=== PATIENT | female | born 1990 | race Caucasian/White ===

== ENCOUNTER → 2019-06-07 | Outpatient (REF) | payer OTHER, MEDICAID ==
[~2019-06-07] MED LIST: IBUP80TA PO; PERCOCET PO; RANI-356 PO; TUMS500C PO; VITAPRTA PO; ZANT150T40 PO
[2019-06-07 19:26] LABS: BASO % 0.4 % (0.0-1.0); EOS # 0.1 10^3/uL (0.0-0.5); EOS % 2.3 % (0.0-3.0); HEMATOCRIT 39.6 % (36.0-47.0); HEMOGLOBIN 13.4 g/dl (12.0-15.5); LYMPH % 20.7 % (24.0-44.0); MEAN CORPUSCULAR HEMOGLOBIN 29.5 pg (27.0-33.0); MEAN CORPUSCULAR HGB CONC 33.8 g/dl (32.0-36.5); MONO # 0.3 10^3/uL (0.0-0.8); MONO % 6.2 % (0.0-5.0); NEUTROPHILS # 3.4 10^3/uL (1.5-8.5); PLATELET COUNT, AUTOMATED 191 10^3/uL (150-450); RED BLOOD COUNT 4.55 10^6/uL (4.00-5.40); WHITE BLOOD COUNT 4.8 10^3/uL (4.0-10.0)
[2019-06-07 19:33] LABS: ALBUMIN 3.8 GM/DL (3.2-5.2); ALT/SGPT 15 U/L (12-78); BILIRUBIN,TOTAL 0.5 MG/DL (0.2-1.0); BLOOD UREA NITROGEN 10 MG/DL (7-18); CALCIUM LEVEL 9.1 MG/DL (8.5-10.1); CARBON DIOXIDE LEVEL 28 MEQ/L (21-32); CHLORIDE LEVEL 105 MEQ/L (98-107); CHOLESTEROL LEVEL 171 MG/DL (<200); CHOLESTEROL RISK RATIO 2.758 (<5); CREATININE FOR GFR 0.62 MG/DL (0.55-1.30); GLOMERULAR FILTRATION RATE > 60.0 (>60); GLUCOSE, FASTING 67 MG/DL (70-100); HDL CHOLESTEROL 62 MG/DL (>40); LDL CHOLESTEROL 97 MG/DL (<100); NON-HDL-C 109 MG/DL; POTASSIUM SERUM 3.9 MEQ/L (3.5-5.1); SODIUM LEVEL 140 MEQ/L (136-145); TOTAL PROTEIN 7.1 GM/DL (6.4-8.2); TRIGLYCERIDES LEVEL 59 MG/DL (<150)
[2019-06-07 19:34] LABS: TOTAL 25(OH) VITAMIN D 14.9 NG/ML (30.0-100.0)
[2019-06-07 19:45] LABS: HEMOGLOBIN A1c 4.4 %
== END ==
LOC: M LAB REF 16:48
PROVIDERS: ATTEND Nurse Practitioner Family
DX: Z00.01 Encounter for general adult medical examination with abnormal findings (principal)

== ENCOUNTER → 2020-01-31 | Outpatient (REF) | payer OTHER ==
[~2020-01-31] MED LIST changes: -RANI-356 PO; +RANI-397 PO
[2020-01-31 14:20] LABS: HEMATOCRIT 34.3 % (36.0-47.0); HEMOGLOBIN 11.8 g/dl (12.0-15.5); MEAN CORPUSCULAR HEMOGLOBIN 29.9 pg (27.0-33.0); MEAN CORPUSCULAR HGB CONC 34.4 g/dl (32.0-36.5); MEAN CORPUSCULAR VOLUME 86.8 fl (80.0-96.0); PLATELET COUNT, AUTOMATED 196 10^3/uL (150-450); RED BLOOD COUNT 3.95 10^6/uL (4.00-5.40); WHITE BLOOD COUNT 5.3 10^3/uL (4.0-10.0)
[2020-01-31 15:52] LABS: CHLAMYDIA DNA AMPLIFICATION NEGATIVE (NEGATIVE); GC DNA AMPLIFICATION NEGATIVE (NEGATIVE)
[2020-02-01 08:01] LABS: HEPATITIS C VIRUS ABY INDEX 0.1 INDEX (<0.8); HIV 1&2 SCREEN CENTAUR NEGATIVE (NEGATIVE)
== END ==
LOC: M PLALAB 11:53
PROVIDERS: ATTEND Specialist
DX: Z34.81 Encounter for supervision of other normal pregnancy, first trimester (principal)

== ENCOUNTER → 2020-04-13 | Outpatient (CLI) | payer OTHER ==
--- NOTE | 2020-05-28 08:58 | REP ---
OBSTETRIC SONOGRAPHY HISTORY: Supervision of for anatomy. This report was delayed due to a protracted episode of network disruption experienced by this facility. FINDINGS: Scanning through the gravid uterus demonstrates single living intrauterine gestation in a cephalic lie. The placenta is posterior grade 0 without evidence of placenta previa or abruption. Amniotic fluid is subjectively normal. Closed cervical length is measured transabdominally at 4.3 cm. heart rate is recorded at 142 beats per minute. Four chamber heart visualization is less than optimal and outflow tract views are less than optimal due to position. The following additional anatomic structures are identified and felt to be unremarkable: Cisterna magna, cavum septum, thalami, spine, left-sided stomach, kidneys and bladder, three-vessel cord, abdominal wall cord insertion, face and lips, upper and lower extremities. BIOMETRY CHART: BPD 50 mm 21 weeks 2 days Head Circumference 189 mm 21 weeks 2 days Abdominal Circumference 159 mm 21 weeks 1 day Femur Length 36 mm 21 weeks 3 days Humeral Length 33.5 mm 21 weeks 3 days Estimated Weight 407 g 57th percentile IMPRESSION: Viable single intrauterine gestation at 21 weeks 2 days by todays composite sonographic criteria. Estimated date of delivery (ROXANNE) by todays sonography 08/22/2020. Four chamber heart and outflow tract views less than optimally achieved due to position. MTDD
== END ==
LOC: M WHC 16:27
PROVIDERS: ATTEND Specialist
DX: Z34.82 Encounter for supervision of other normal pregnancy, second trimester (principal); Z3A.21 21 weeks gestation of pregnancy

== ENCOUNTER → 2020-05-28 | Outpatient (CLI) | payer OTHER ==
--- NOTE | 2020-06-07 17:58 | REP ---
FOLLOW-UP OBSTETRICAL ULTRASOUND COMPARISON: 04/13/2020. FINDINGS: Ultrasound examination demonstrates a single live intrauterine in breech presentation. motion was identified by the technologist. Placenta noted posteriorly and grade 1 without placenta previa or abruption. Amniotic fluid volume is normal. Cervix measures 4.1 cm in length and appears closed. Gestational age by current measurements 27 weeks 4 days with estimated date of delivery 08/23/2020. heart rate 133 beats per minute. Estimated weight 1071 grams (54th percentile). Anatomical assessment demonstrates normal facial features, four chamber heart/ventricular outflow tracts, stomach, kidneys, bladder, and three-vessel cord. IMPRESSION: Single live intrauterine demonstrating appropriate interval growth. In conjunction with prior examination, anatomical assessment is complete and normal. MTDD
== END ==
LOC: M WHC 11:23
PROVIDERS: ATTEND Advanced Practice Midwife
DX: Z34.82 Encounter for supervision of other normal pregnancy, second trimester (principal); Z3A.27 27 weeks gestation of pregnancy

== ENCOUNTER → 2020-06-05 | Outpatient (CLI) | payer OTHER ==
[2020-06-05 13:37] LABS: BASO % 0.3 % (0.0-1.0); EOS # 0.2 10^3/uL (0.0-0.5); EOS % 2.2 % (0.0-3.0); HEMATOCRIT 33.1 % (36.0-47.0); HEMOGLOBIN 10.9 g/dl (12.0-15.5); LYMPH # 1.3 10^3/uL (1.5-5.0); MEAN CORPUSCULAR HEMOGLOBIN 29.2 pg (27.0-33.0); MEAN CORPUSCULAR HGB CONC 32.9 g/dl (32.0-36.5); MEAN CORPUSCULAR VOLUME 88.7 fl (80.0-96.0); MONO # 0.3 10^3/uL (0.0-0.8); MONO % 4.5 % (0.0-5.0); NEUTROPHILS # 5.7 10^3/uL (1.5-8.5); NEUTROPHILS % 75.5 % (36.0-66.0); PLATELET COUNT, AUTOMATED 170 10^3/uL (150-450); RED BLOOD COUNT 3.73 10^6/uL (4.00-5.40); WHITE BLOOD COUNT 7.6 10^3/uL (4.0-10.0)
== END ==
LOC: M PLALAB 10:55
PROVIDERS: ATTEND Advanced Practice Midwife
DX: Z34.81 Encounter for supervision of other normal pregnancy, first trimester (principal); Z3A.00 Weeks of gestation of pregnancy not specified

== ENCOUNTER → 2020-07-24 | Outpatient (REF) | payer OTHER | LOC: M SFHCWAGY 16:52 | PROVIDERS: ATTEND Specialist | DX: Z34.83 Encounter for supervision of other normal pregnancy, third trimester (principal); Z3A.00 Weeks of gestation of pregnancy not specified ==

== ENCOUNTER → 2020-08-13 | Outpatient (CLI) | payer OTHER ==
[~2020-08-13] MED LIST changes: +FERR325T81 PO; +MULTTAB20 PO; +OMEP-218 PO; +UNIS50CA PO
== END ==
LOC: M LABSMTC 14:05
PROVIDERS: ATTEND Anesthesiology
DX: Z01.812 Encounter for preprocedural laboratory examination (principal); Z11.59 Encounter for screening for other viral diseases

== ENCOUNTER 2020-08-14 05:34 | Inpatient (IN) | payer OTHER ==
[2020-08-14] VITALS (9 sets, daily range): BP systolic 111–141; BP diastolic 58–76
[~2020-08-14] VITALS: Ht 165.1 cm; Wt 108.9 kg
[2020-08-14 06:49] LABS: HEMATOCRIT 32.8 % (36.0-47.0); HEMOGLOBIN 10.2 g/dl (12.0-15.5); MEAN CORPUSCULAR HGB CONC 31.1 g/dl (32.0-36.5); MEAN CORPUSCULAR VOLUME 80.4 fl (80.0-96.0); PLATELET COUNT, AUTOMATED 173 10^3/uL (150-450); RED BLOOD COUNT 4.08 10^6/uL (4.00-5.40); WHITE BLOOD COUNT 9.4 10^3/uL (4.0-10.0)
[2020-08-14] MEDS ORDERED: BICITRA 30ML SOLN UDC PO ONE (07:30)
[2020-08-14] MEDS ORDERED: ceFAZolin SOD 2 GM in IV 1 EA IV ONE (07:30)
[2020-08-14] MEDS ORDERED: LR 1,000 ML IV SCH ×2 (07:46→10:15)
[2020-08-14] MEDS ORDERED: LACTATED RINGER'S 1000 ML IV STA (07:46)
[2020-08-14] MEDS ORDERED: MORPHINE PRES-FREE INJ 10 MG/10 ML VIAL (J2274) As Ordered ONE (08:45)
--- NOTE | 2020-08-14 08:45 | HPEPDOC ---
Obstetrical History & Physical General Date of Admission Aug 14, 2020 at 05:34 Primary Care Physician: ANTOINETTE LEWIS MD History of Present Illness 30 yo femdora at 38 3/7 weeks gestation by LMP c/w 10 week ultrasound (EDC=08/24/2020) presents for repeat . She has had two prior sections. Information Provided By: Patient Age: 30 : 4 Term: 2 Pre-term: 0 Abortions: 1 Livin Care Care: None Dating Final EDC: Aug 24, 2020 Final EDC by: LMP, 1st trimester (US) Past Medical History Past Obstetrical History : Past Obstetrical History: Multigravida Past Medical History Medical History OB hx: x 2 med hx: non contributory Social History Marital Status: Psychosocial History: No pertinent psych hx * Smoker: non-smoker Drugs: denies Allergies Coded Allergies: aspirin (Verified Allergy, Unknown, hives, 08/10/20) acetaminophen (Verified Adverse Reaction, Unknown, nausea, 08/10/20) oxycodone (Verified Adverse Reaction, Unknown, nausea, 08/10/20) Medications Scheduled Diphenhydramine HCl (Unisom) 50 Mg Capsule, 50 MG PO QHS Ferrous Sulfate (Iron) 325 Mg Tablet, 65 MG PO DAILY Omeprazole (Omeprazole) 20 Mg Capsule.dr, 20 MG PO QHS No122/Iron/Folic Acid ( Multi Tablet) 1 Each Tablet, 1 TAB PO DAILY Physical Examination Physical Examination GENERAL: Alert and oriented times three. BREAST: . ABDOMEN: Gravid and non-tender to touch. FETUS: Is vertex (VTX) by sterile vaginal examination (SVE), fetus is vertex (VTX) by Douglas. HEART RATE: Regular rate and rhythm. LUNGS: Clear to auscultation (CTA). EXTREMITIES: No edema. No clonus. Deep tendon reflexes (DTRs) + . Vital Signs/I&O Vital Signs Date Time Temp Pulse Resp B/P (MAP) Pulse Ox O2 Delivery O2 Flow Rate FiO2 08/14/20 06:50 83 18 135/70 (91) Laboratory Data 24H LABS Laboratory Tests 2 08/13/20 22:24: Serology Scanned Report Hepatitis B Testing 08/14/20 06:25: Nucleated Red Blood Cells % (auto) 0.0 CBC/BMP Laboratory Tests 08/14/20 06:25 Pertinent Laboratoy Data HIV: Negative Hepatitis B: Negative Hepatitis C: Negative Rapid Plasma Reagin: Nonreactive Rubella: Immune Vaginal Examination Dilation: 1cm Effacement: 50% Station: -2 Cervical Consistency: Firm Cervical Position: Posterior Tocometer Contractions: Yes Frequency: irregular Assessment/Plan Assessment Pt is a 30-year-old (G)4 para (P)2011 at 38 +3 weeks by LMP c/w 10- week ultrasound presents for repeat section. Plan Admit and orient. Color Weigher and consent. Group B Streptococcus (GBS) [negative]. Labs and intravenous (IV) per unit protocol consent for signed. ANTOINETTE LEWIS MD Aug 14, 2020 08:44
[2020-08-14] MEDS ORDERED: ONDANSETRON 4MG/2ML VIAL IV PRN ×3 (08:51→10:15)
[2020-08-14] MEDS ORDERED: NALBUPHINE HCL 10 MG/ML AMP (J2300) IV PRN (08:51)
[2020-08-14] MEDS ORDERED: METOCLOPRAMIDE INJ 10MG/2ML VIAL (J2765 PER 1) IV PRN ×2 (08:51→10:15)
[2020-08-14] MEDS ORDERED: diphenhydrAMINE 50MG/ML VIAL (J1200) IV PRN (08:51)
[2020-08-14] MEDS ORDERED: NALOXONE INJ 0.4MG/1ML VIAL (J2310 PER 1MG) IV PRN ×2 (08:51)
[2020-08-14] MEDS ORDERED: OXYTOCIN INJ 10 UNITS/ML VIAL (J2590) As Ordered ONE (08:59)
[2020-08-14] MEDS ORDERED: ePHEDrine SULFATE 25 MG/5 ML(5MG/ML) SYRINGE As Ordered ONE (08:59)
[2020-08-14] MEDS ORDERED: ONDANSETRON 4MG/2ML VIAL As Ordered ONE ×2 (08:59→10:24)
[2020-08-14] MEDS: PRENATAL VITAMINS CHEWABLE TABLET PO SCH (09:00)
[2020-08-14] MEDS ORDERED: OXYTOCIN DRIP 30 UNITS in IV 1 EA IV SCH (09:39)
[2020-08-14] MEDS: LR 1,000 ML IV SCH ×2 (09:39→16:59)
[2020-08-14] MEDS ORDERED: MEASLES,MUMPS,RUBELLA VACCINE INJ (MMR-II) (90707) SC SCH (09:45)
[2020-08-14] MEDS ORDERED: DOCUSATE SODIUM 100MG CAPSULE PO PRN (09:45)
[2020-08-14] MEDS ORDERED: RHOGAM 300 MCG (1500 IU) INJ (J2790) IM SCH (09:45)
--- NOTE | 2020-08-14 09:46 | ROOPDOC ---
[facility] Report Of Operation Report of Operation DATE OF PROCEDURE: 08/14/20 PREPROCEDURE DIAGNOSES: 38 2/7 weeks, gestational hypertension, prior x 2. POSTPROCEDURE DIAGNOSES: same. PROCEDURE: repeat low transverse . SURGEON: Antoinette Lewis MD MANAGER DISASTER RECOVERY: Shiela Parsons CNM ANESTHESIA: Spinal. ESTIMATED BLOOD LOSS: Approximately 600 mL. Findings: 7 lb 12 oz male, Apgars 8, 9. Normal uterus, tubes ovaries. COMPLICATIONS: none. Summary: The patient was taken to the OR where spinal anesthesia was induced. A Sow Catheter was placed. A Pfannenstiel skin incision was created with a scalpel. The fascia was nicked and extended. The peritoneal cavity was entered. A Mobius retractor was placed. A curvilinear incision was made in the lower uterine segment. Membranes were ruptured with clear fluid. The was delivered from the vertex position without difficulty. The cord was doubly clamped and cut. The infant was handed to the awaiting nurses. The placenta was expressed. The uterus was closed with O-Vicryl in a running locked fashion. A second imbricating layer was placed. The peritoneum was closed with 2-O chromic in a running fashion. The fascia was closed with O-Vicryl in a running fashion. The deep layer was irrigated. The skin was closed with 4-O Monocryl in a running fashion. Sponge, needle, instrument counts correct. Shiela Parsons CNM, assisted throughout the procedure. She helped create all layers of the incision. She was indispensable to the procedure. ANTOINETTE LEWIS MD Aug 14, 2020 09:46
[2020-08-14] MEDS ORDERED: OXYTOCIN 30 UNITS IN 0.9% NaCl 500ML IV BAG (J2590) As Ordered ONE (10:10)
[2020-08-14] MEDS ORDERED: fentaNYL 100 MCG/2 ML INJECTION (J3010) IV PRN (10:15)
[2020-08-14] MEDS ORDERED: KETOROLAC 30 MG/ML 1ML VIAL As Ordered ONE (10:24)
[2020-08-14] MEDS: KETOROLAC 30 MG/ML 1ML VIAL IV SCH ×3 (10:25→22:06)
[2020-08-14] MEDS ORDERED: diphenhydrAMINE 50MG/ML VIAL (J1200) As Ordered ONE (10:41)
[2020-08-15] MEDS: LR 1,000 ML IV SCH ×2 (02:16→08:46)
[2020-08-15 02:41] VITALS: BP 119/64
[2020-08-15] MEDS: KETOROLAC 30 MG/ML 1ML VIAL IV SCH (04:17)
[2020-08-15 06:44] VITALS: BP 126/61
[2020-08-15 06:49] LABS: HEMATOCRIT 30.1 % (36.0-47.0); HEMOGLOBIN 9.1 g/dl (12.0-15.5); MEAN CORPUSCULAR HGB CONC 30.2 g/dl (32.0-36.5); MEAN CORPUSCULAR VOLUME 82.7 fl (80.0-96.0); PLATELET COUNT, AUTOMATED 184 10^3/uL (150-450); RED BLOOD COUNT 3.64 10^6/uL (4.00-5.40); WHITE BLOOD COUNT 8.8 10^3/uL (4.0-10.0)
[2020-08-15] MEDS: PRENATAL VITAMINS CHEWABLE TABLET PO SCH (08:28)
[2020-08-15 10:00] VITALS: BP 118/56
[2020-08-15] MEDS: IBUPROFEN 800 MG TAB PO SCH ×2 (11:37→20:27)
[2020-08-15 14:00] VITALS: BP 124/65
[2020-08-15] MEDS: ACETAMINOPHEN 500 MG TAB PO PRN ×2 (17:30→23:27)
[2020-08-15 18:00] VITALS: BP 140/73
[2020-08-15 22:00] VITALS: BP 127/72
[2020-08-16 02:00] VITALS: BP 127/66
[2020-08-16] MEDS: IBUPROFEN 800 MG TAB PO SCH ×2 (04:22→11:26)
[2020-08-16 06:00] VITALS: BP 142/79
--- NOTE | 2020-08-16 07:54 | DSES ---
DISCHARGE SUMMARY DATE OF ADMISSION: 08/14/2020 DATE OF DISCHARGE: / / DISCHARGE DIAGNOSIS: Repeat section postoperative day #2, stable condition. SURGEON: Amarjit Sheridan MD EXTRUSION MACHINE OPERATOR: Shiela Parsons CNM HISTORY: Janis is a 30-year-old, 4, para 3-0-1-3 now, who underwent a repeat section at term. Surgery was uncomplicated. She delivered a live male weighing 7 pounds 12 ounces, scores were 8 and 9, estimated blood loss 600 mL. She has been tolerating by mouth fluids and a regular diet. She is voiding without difficulty and passing flatus. Her pain has been well-managed with by mouth pain medications. She has been out of bed for self-care, perineal care, and care, and is requesting discharge today. is also established. OBJECTIVE: Temperature 98, pulse 68, respirations 18, blood pressure is 142/79. Preoperative CBC on 08/14/2020 with a hemoglobin of 10.2, hematocrit 32.8, platelet 173. Postoperative CBC on 08/15/2020 with a hemoglobin of 9.1, hematocrit 30.1, and platelet 184. Her breasts are soft, nontender. Her abdomen is fundus firm at umbilicus. Her incision dressing is in place, it is dry, there is no drainage observed. Perineum is intact. Lochia rubra is scant. Bilateral lower extremities with +1 pitting edema. PLAN: Discharge the patient home today. She is to see [facility] for a 2 week incision check and an [address] Sheridan. Pain medications have been e-prescribed by Dr. Sheridan to the patient's pharmacy. I did review discharge instructions that include breast care, incision care, perineal care, pelvic rest, activity and lifting restrictions, access to care, and other danger signs which to report. The patient and her have had all of their questions answered.
[2020-08-16] MEDS: PRENATAL VITAMINS CHEWABLE TABLET PO SCH (09:00)
== END 2020-08-16 19:02 | disposition home or self-care (01) | DRG 540 ==
LOC: M LDI 05:34 → M OBS 11:36
PROVIDERS: ADMIT Specialist; ATTEND Specialist
PROC: 10D00Z1 Extraction of Products of Conception, Low, Open Approach (ICD-10-PCS; principal; 2020-08-14 07:30)
DX: O34.211 Maternal care for low transverse scar from previous cesarean delivery (principal); Z3A.38 38 weeks gestation of pregnancy; Z37.0 Single live birth